=== PATIENT | female | born 1995 | race Hispanic/Latino ===

== ENCOUNTER 2022-08-06 17:50 | Emergency (ER) | payer SELFPAY ==
[~2022-08-06] VITALS: Ht 152.4 cm; Wt 77.1 kg
[2022-08-06] MEDS ORDERED: ONDANSETRON HCL INJ 2MG/ML 2ML 2 MG/ML VIAL ONE (17:57)
[2022-08-06] MEDS ORDERED: KETOROLAC TROMETHAMINE 30 MG/ML VIAL ONE (17:57)
[2022-08-06] MEDS ORDERED: FAMOTIDINE 20 MG/2 ML VIAL IV ONE (17:57)
[2022-08-06] MEDS ORDERED: SODIUM CHLORIDE 0.9% 1000ML 1,000 ML ONE (17:57)
[2022-08-06] MEDS ORDERED: FAMOTIDINE 20 MG/2 ML VIAL IV STA (18:31)
[2022-08-06] MEDS ORDERED: KETOROLAC TROMETHAMINE 30 MG/ML VIAL IV STA (18:31)
[2022-08-06] MEDS ORDERED: SODIUM CHLORIDE 0.9% 1000ML 1,000 ML IV ONE (18:45)
[2022-08-06] MEDS ORDERED: IOPAMIDOL 370 MG/ML 100 ML INFUS..BTL INJ ONE (19:09)
[2022-08-06] MEDS ORDERED: FAMOTIDINE40 MG PO (21:48)
[2022-08-06] MEDS ORDERED: PANTOPRAZOLE SO40 MG PO (21:49)
== END 2022-08-06 22:23 | disposition home or self-care (01) ==
LOC: FSED 18:21
DX: R10.13 Epigastric pain (principal); K29.70 Gastritis, unspecified, without bleeding
CPT/HCPCS: 74177; 80048; 80076; 81003; 81025; 85025; 99284; J1885; J2405; J7030; Q9967